=== PATIENT | female | born 1990 | race Caucasian/White ===

== ENCOUNTER 2020-12-21 18:55 | Emergency (ER) | payer OTHER, BC ==
[~2020-12-21] VITALS: Ht 172.7 cm; Wt 113.4 kg
[2020-12-21] MEDS ORDERED: FLEXERIL PO (20:10)
[2020-12-21] MEDS ORDERED: MEDROLDOSEPACK PO (20:10)
[2020-12-21] MEDS ORDERED: IBUPROFEN 600600 M1 PO (20:10)
[2020-12-21] MEDS ORDERED: APAP W/CODEINE1 TA2 PO (20:10)
[2020-12-21 20:20] VITALS: BP 123/79
--- NOTE | 2020-12-22 10:55 | EKG ---
[place] [address] ELECTROCARDIOGRAM REPORT Name: OSMAR CANTOR Room: [facility]#: [id number] Admission: 12/21/20 Attend Phys: Discharge: 12/21/20 Date of : 88 Date of Service: 12/21/201918 Report #: [id number] THIS REPORT FOR: //name// [facility] ED Test Date: 2020-12-21 Test Time: 19:19:42 Pat Name: OSMAR BAUMLY Department: Room: Gender: F [employer] Operator: CCD : 1990 Requested By: Misael Calle Order Number: [id number] Antony MD: Lasha Flores Measurements Intervals [place] Rate: 62 P: 33 DC: 130 QRS: 39 QRSD: 89 T: 12 QT: 406 QTc: 413 Interpretive Statements Sinus rhythm Baseline wander in lead(s) II,III,aVF No previous ECG available for comparison Electronically Signed On 12-22-2020 10:55:21 CDT by Lasha Flores [email or web address] <ELECTRONICALLY SIGNED> By: Lasha Flores MD, [facility] 12/22/20 1055 18 18 Lasha Flores MD, [facility] /EPI
== END 2020-12-21 20:20 | disposition home or self-care (01) ==
LOC: M.ERS 18:55
DX: S16.1XXA Strain of muscle, fascia and tendon at neck level, initial encounter (principal); R51.9 Headache, unspecified; R07.89 Other chest pain; M54.9 Dorsalgia, unspecified; Z88.2 Allergy status to sulfonamides; V43.92XA Unspecified car occupant injured in collision with other type car in traffic accident, initial encounter; Y93.89 Activity, other specified; Y92.488 Other paved roadways as the place of occurrence of the external cause; Y99.8 Other external cause status